=== PATIENT | female | born 1975 | race Caucasian/White ===

== ENCOUNTER 2018-06-05 09:07 | Day surgery (SDC) | payer BC ==
[2013-02-26 10:37] VITALS: BMI 27.4
[2018-06-05 10:01] VITALS: O2SAT 100
[2018-06-05] MEDS ORDERED: Propofol 10 mg/ml Inj (20 ML) ONE (13:15)
[2018-06-05] MEDS ORDERED: Midazolam 2 MG/2 ML VIAL ONE (13:15)
[2018-06-05] MEDS ORDERED: HYDROmorphone 0.5 mg/0.5 ml ISec IVP PRN (13:20)
--- NOTE | 2018-06-05 14:01 | PCM.SURG1 ---
Surgeon's Initial Post Op Note - Surgeon's Notes Surgeon: Dr Martínez Deputy Sheriff: None Type of Anesthesia: General LMA Anesthesia Administered By: Dr. Lopez Pre-Operative Diagnosis: 42 yo with Menorrhagia, Endometrial polyp Operative Findings: AV uterus 8 wks gestation with endometrial polyp Post-Operative Diagnosis: Same as above Operation Performed: Hysteroscopy Myosure D and C Specimen/Specimens Removed: EMC,ECC, Endometrial polyp Estimated Blood Loss: EBL {In ML}: 10 Blood Products Given: N/A Drains Used: No Drains Post-Op Condition: Good Date of Surgery/Procedure: 06/05/18 Time of Surgery/Procedure: 14:03
[2018-06-05 15:56] VITALS: RESP 18; TEMP 98
[2018-06-05 17:01] VITALS: BP 108/70; PULSE 60
--- NOTE | 2018-06-19 23:52 | OP ---
PROCEDURE DATE: 06/05/2018 PREOPERATIVE DIAGNOSIS: A 42-year-old female with history of menorrhagia and endometrial polyp. POSTOPERATIVE DIAGNOSIS: A 42-year-old female with history of menorrhagia and endometrial polyp. PROCEDURES: Hysteroscopy, MyoSure, dilation and curettage. SURGEON: Ann Marie Martínez MD PROGRAM DIRECTOR/TRAFFIC DIRECTOR: None. TYPE OF ANESTHESIA: General LMA. FINDINGS: Anteverted uterus, approximately 8 to 10 weeks . Noted to have an endometrial polyp. COMPLICATIONS: None. ESTIMATED BLOOD LOSS: Approximately 10 mL. INPUT AND OUTPUT: 100 mL. SPECIMENS: EMC, ECC, and polyp. DESCRIPTION OF PROCEDURE: The patient was informed of the risk factors, benefits, and alternatives of the procedure. Risk factors include infection, bleeding, damage to surrounding organs and tissue, complications from anesthesia and possible . After informed consent was obtained, she was then taken to the operating room, prepped and draped in a normal sterile fashion, placed in dorsal lithotomy position. A weighted speculum was placed into the vagina. The anterior lip of the cervix was grasped with single-tooth tenaculum. The uterus was gently sounded to approximately 10 cm. Upon complete uterine dilation, the scope was then placed. A complete surveillance of the uterine cavity was then performed and was noted to have an endometrial polyp. The MyoSure device was then activated. Under direct visualization, the MyoSure device was utilized to remove the polyp and submitted to Pathology. Upon completion, the hysteroscopy and MyoSure device were removed. A fractional D and C was performed. EMC and ECC were performed and submitted to Pathology. Upon completion, the scope was then re-introduced making sure there were no areas of perforation. Instruments and lap count were correct x2. The patient was then taken to recovery room in stable condition and instructed to follow up in the office in approximately two weeks. Ann Marie Martínez MD [facility]
== END 2018-06-05 16:11 | disposition home or self-care (01) ==
LOC: C.SDS 09:07
PROVIDERS: ATTEND Obstetrics & Gynecology
DX: N84.0 Polyp of corpus uteri (principal); N92.0 Excessive and frequent menstruation with regular cycle
CPT/HCPCS: 58558; 88305; J1100; J2250; J2704; J3010